=== PATIENT | female | born 1995 | race Caucasian/White ===

== ENCOUNTER 2021-01-18 12:31 | Emergency (ER) | payer OTHER | END 2021-01-18 15:12 | disposition home or self-care (01) | LOC: ER1 12:31 | DX: S63.617A Unspecified sprain of left little finger, initial encounter (principal); S40.012A Contusion of left shoulder, initial encounter; Z88.1 Allergy status to other antibiotic agents; Z88.8 Allergy status to other drugs, medicaments and biological substances; W23.0XXA Caught, crushed, jammed, or pinched between moving objects, initial encounter; Y92.009 Unspecified place in unspecified non-institutional (private) residence as the place of occurrence of the external cause | CPT/HCPCS: 73030; 73080; 73110; 73130; 96372; 99283; J1885 ==